=== PATIENT | male | born 1970 | race Caucasian/White ===

== ENCOUNTER → 2016-02-28 | Outpatient (REF) ==
[~2016-02-28] MED LIST: CENTRUM SILVER1 CTB PO; COZAAR100 MG PO; FLAX OIL1000 MG PO; FLEXERIL 1010 MG/TAB PO; HCTZ 25MG TAB25 MG PO; NAPROSYN500 MG PO; NORVASC 10MG10 MG PO; PERCOCET 325 MG1 TA2 PO; PREDNISONE20 MG PO
== END ==
LOC: ZLAB.WCH 10:20
DX: Z01.89 Encounter for other specified special examinations (principal)

== ENCOUNTER 2022-04-02 20:36 | Inpatient (IN) | payer BC ==
[2022-04-02] VITALS (54 sets, daily range): BP systolic 139; BP diastolic 96; PULSE 93–103; TEMP 97.7; O2SAT 92–100
[~2022-04-02] VITALS: Ht 193 cm; Wt 135.4 kg
[~2022-04-02 20:36] MED LIST changes: +CLARITIN 1010 MG/TAB PO; +HYZAAR 25 MG-101 TAB PO; +IMITREX 25MG TA25 MG PO; +MOBIC15 MG PO; +NORMODYNE100 MG PO; +PROTONIX 40MG T40 MG PO
[2022-04-02 20:56] LABS: BASO # 0.1 K/mm3 (0.0-0.2); BASO % 0.3 % (0.0-2.0); EOS # 0.2 K/mm3 (0.0-0.7); EOS % 1.3 % (0.0-4.0); GRAN # 9.4 K/mm3 (1.4-6.5); GRAN % 63.7 % (42.2-75.2); HEMATOCRIT 43.9 % (42.0-52.0); HEMOGLOBIN 15.9 g/dl (13.5-18.0); LYMPH % 27.3 % (20.0-51.0); MEAN CELL VOLUME 88 fl (80.0-100.0); MEAN CORPUSCULAR HEMOGLOBIN 32 pg (27-31); MEAN CORPUSCULAR HGB CONC 36 g/dl (33.0-37.0); MEAN PLATELET VOLUME 10.3 fl (7.4-10.4); PLATELET COUNT 272 K/mm3 (130-400); RED BLOOD COUNT 4.98 M/mm3 (4.20-5.60); REDCELL DISTRIBUTION WIDTH-CV 13.5 % (11.5-14.5)
[2022-04-02 21:02] LABS: PROTHROMBIN TIME 11.4 SECONDS (9.7-12.8)
[2022-04-02 21:15] LABS: ALBUMIN 4.3 gm/dL (3.5-5.0); BILIRUBIN,TOTAL 1.4 mg/dL (0.2-1.2); CREATININE, serum 1.18 mg/dL (0.72-1.25); POTASSIUM 3.4 mmol/L (3.5-4.5); TOTAL PROTEIN 8.1 gm/dL (6.2-8.1)
[2022-04-02 21:31] LABS: TROPONIN-I 0.067 ng/mL (0.00-0.033)
[2022-04-02 22:37] LABS: D-DIMER < 200.00 ng/mLDDu (200-230)
[2022-04-02] MEDS ORDERED: TOPROL XL100 MG PO (22:55)
[2022-04-02] MEDS ORDERED: PRILOTC PO (22:55)
--- NOTE | 2022-04-02 23:52 | NUR ---
PT ARRIVED VIA STRETCHER AT 2247 FROM ER. MOVED TO ICU BED AND CONNECTED TO MONITORING. HEPARIN DRIP AT 1950 UN/HR AND CARDIZEM DRIP AT 10 MG/HR INFUSING TO BILAT A/C 20G PIVS. UPON ARRIVAL, PT STATES FEELING BETTER DENIES PAIN. 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 CTA CHEST ORDERED AND PT TAKEN TO CT VIA WHEELCHAIR WITH RN. CURRENTLY BACK IN ICU BED, PT SPOKE WITH ON ROOM PHONE. VSS, RESP EVEN AND UNLABORED. WILL CONTINUE TO MONITOR.
[2022-04-03] VITALS (1172 sets, daily range): BP systolic 104–143; BP diastolic 68–93; PULSE 58–98; TEMP 97.6–98; O2SAT 88–100
[2022-04-03 00:14] LABS: MAGNESIUM 1.8 mg/dL (1.6-2.6)
--- NOTE | 2022-04-03 08:25 | NUR ---
RECEIVED REPORT FROM NIGHTSHIFT RNGERARDO. CARDIZEM AND HEPARIN DRIPS VERIFIED. PATIENT ASSESSMENT COMPLETED AND MEDS ADMINISTERED PER EMAR.
[2022-04-03 09:54] LABS: HEMATOCRIT 43.9 % (42.0-52.0); HEMOGLOBIN 15.6 g/dl (13.5-18.0); MEAN CELL VOLUME 87 fl (80.0-100.0); MEAN CORPUSCULAR HEMOGLOBIN 31 pg (27-31); MEAN CORPUSCULAR HGB CONC 36 g/dl (33.0-37.0); MEAN PLATELET VOLUME 10.4 fl (7.4-10.4); PLATELET COUNT 221 K/mm3 (130-400); RED BLOOD COUNT 5.03 M/mm3 (4.20-5.60); REDCELL DISTRIBUTION WIDTH-CV 13.7 % (11.5-14.5)
[2022-04-03 10:00] LABS: INR 1.1 (0.8-3.0); PROTHROMBIN TIME 12.3 SECONDS (9.7-12.8)
[2022-04-03 10:09] LABS: CALCIUM 9.9 mg/dL (8.4-10.2); CREATININE, serum 1.01 mg/dL (0.72-1.25); POTASSIUM 3.5 mmol/L (3.5-4.5)
[2022-04-03 10:18] LABS: PARTIAL THROMBOPLASTIN TIME 130.3 SECONDS (26.0-37.0)
--- NOTE | 2022-04-03 10:48 | NUR ---
Initial visit; Patient, his and daughter thanked Sediment Remediation Consultant for coming in to visit Michael and keeping him in her prayers and offering the three of them Ashes for Lent.
--- NOTE | 2022-04-03 11:10 | NUR ---
PT was admitted to ICU on 04-02 from the ER. Tire Trimmer Hand met with PT, his , and daughter at bedside to conduct Care Managment intake and discharge planning. Patient reports that he lives in [place] with his and daughter. PT's PCP is Dr. Freeman in [place], [place] and currently has [employer] as his primary insurance. PT denies the use of MDE and O2 at this time. Patient does not have AD on file and requested AD paperwork. AD paperwork was provided by NIMISHA. PT reports no support concerns if discharged home. SW will monitor for further discharge needs.
--- NOTE | 2022-04-03 12:21 | NUR ---
PT COMPLAINING OF CHEST PAIN 11/19. PT GIVEN ODT NITRO AND MORPHINE PER ORDERS. PT HAS NOW STATED PAIN IS SUBSIDING IN HIS CHEST/LEFT ARM. PT DOES HAVE HEADACHE
--- NOTE | 2022-04-03 12:54 | NUR ---
PATIENT TO MARKETING/SALES PERSON AND OFF UNIT AT 1244. PATIENT ACCOMPANIED BY MARKETING/SALES PERSON STAFF.
--- NOTE | 2022-04-03 13:05 | NUR ---
SEE MERGE FOR ALL MEDICATION ADMINISTRATION TIMES/DOSAGES AND INTRA/POST PROCEDURE SEDATION ASSESSMENTS.
--- NOTE | 2022-04-03 14:52 | NUR ---
PATIENT DID NOT TOLERATE IV POTASSIUM. PHARMACY CONTACTED AND CHANGED TO PO MED. PATIENT NO LONGER NPO STATUS.
--- NOTE | 2022-04-03 14:59 | NUR ---
PATIENT RETURNED TO ICU ROOM 5 @ 1407 FROM WEATHER ANALYST. PATIENT ACCOMPANIED BY WEATHER ANALYST NURSE. PATIENT REPORTS NO CP, SOA, OR PAIN OTHER THAN MILD HEADACHE FROM EARLIER NITRO DOSE. PATIENT REQUESTED IMITREX - MED GIVEN PER EMAR. NO BLEEDING AT SITE. COMPRESSION DEVICE IN PLACE. WILL CONTINUE TO MONITOR.
--- NOTE | 2022-04-03 15:53 | NUR ---
municipal maintenance worker and NIMISHA Deal met with Patient at bedside to follow-up on the AD paperwork provided by this SW. Patient stated that his family has the paperwork and will complete when they return. SW briefed Patient that the directive can be completed outside of the hospital, should he be discharged before it is completed.
--- NOTE | 2022-04-03 16:24 | NUR ---
[employer] History Teacher and NIMISHA Deal met with Patient and his family to complete the AD paperwork. Patient's , James was appointed the primary agent and Linda, his daughteras the secondary. This NIMISHA and Surjit signed as wittnesses.
--- NOTE | 2022-04-03 17:22 | NUR ---
PATIENT CALLED TO NOTIFY NURSE LOOP RECORDER SITE WAS BLEEDING AT 1630. DRESSING AND GOWN WERE SATURATED WITH BLOOD. OLD DRESSING REMOVED, STERI-STRIPS STILL INTACT. AREA CLEANED AND NEW DRESSING APPLIED. AT 1715 PATIENT CALLED AGAIN TO NOTIFY NURSE OF BLEEDING AT THE LOOP RECORDER SITE. PRESSURE DRESSING WAS SATURATED AGAIN WITH BLOOD. ATTEMPTED TO CALL METAL CABINET FINISHER X2 WITH NO SUCCESS. KINGSLEY HARRIS AND ICU CLAY PIGEON LOADER KINGSLEY TUCKER NOTIFIED AT THIS TIME. PRESSURE WAS HELD TO THE SITE FOR 7 MINUTES. AREA WAS CLEANSED, NEW PRESSURE DRESSING WAS APPLIED BY KINGSLEY TUCKER. WILL CONTINUE TO MONITOR.
--- NOTE | 2022-04-03 22:59 | NUR ---
AIR FROM TR BAND FULLY REMOVED BY PREVIOUS RN. TR BAND REMOVED AND BANDAID PLACED OVER SITE. NO BLEEDING OBSERVED
[2022-04-04] VITALS (714 sets, daily range): BP systolic 123–142; BP diastolic 80–97; PULSE 58–62; TEMP 97.7–98.2; O2SAT 77–99
[2022-04-04 06:38] LABS: BASO % 0.3 % (0.0-2.0); EOS # 0.2 K/mm3 (0.0-0.7); EOS % 2.3 % (0.0-4.0); HEMATOCRIT 42.8 % (42.0-52.0); HEMOGLOBIN 14.8 g/dl (13.5-18.0); LYMPH % 26.1 % (20.0-51.0); MEAN CELL VOLUME 89 fl (80.0-100.0); MEAN CORPUSCULAR HEMOGLOBIN 31 pg (27-31); MEAN CORPUSCULAR HGB CONC 35 g/dl (33.0-37.0); MEAN PLATELET VOLUME 10.3 fl (7.4-10.4); MONO # 0.6 K/mm3 (0.1-0.6); PLATELET COUNT 208 K/mm3 (130-400); RED BLOOD COUNT 4.79 M/mm3 (4.20-5.60); REDCELL DISTRIBUTION WIDTH-CV 13.4 % (11.5-14.5)
[2022-04-04 06:57] LABS: CALCIUM 9.2 mg/dL (8.4-10.2); POTASSIUM 3.9 mmol/L (3.5-4.5)
--- NOTE | 2022-04-04 07:20 | NUR ---
[facility]. LABS, ORDERS, AND MEDICATIONS REVIEWED.
--- NOTE | 2022-04-04 09:47 | NUR ---
HEAD TO TOE ASSESSMENT COMPLETED. MEDICATIONS ADMINISTERED PER EMAR. PATIENT HAS NO COMPAINTS OF PAIN OR CONCERNS AT THIS TIME. CALL LIGHT WITHIN REACH. WILL CONTINUE TO MONITOR.
[2022-04-04] MEDS ORDERED: CLEOCIN HC150 MG/CAP PO (11:39)
[2022-04-04] MEDS ORDERED: ASPIRIN 81M81 MG/TA2 PO (11:39)
--- NOTE | 2022-04-04 12:30 | NUR ---
PATIENT AND FAMILY PROVIDED WITH EDUCATION HANDOUTS, MED LIST, AND DISCHARGE PACKET. PATIENT STATED UNDERSTANDING.
== END 2022-04-04 12:41 | disposition home or self-care (01) | DRG 260 ==
LOC: COL.ER 20:36 → ICU 21:27
PROVIDERS: Emergency Medicine; Student in an Organized Health Care Education/Training Program; ADMIT Internal Medicine
PROC: 0JH632Z Insertion of Monitoring Device into Chest Subcutaneous Tissue and Fascia, Percutaneous Approach (ICD-10-PCS; principal; 2022-04-03)
PROC: 4A023N7 Measurement of Cardiac Sampling and Pressure, Left Heart, Percutaneous Approach (ICD-10-PCS; 2022-04-03)
PROC: B2111ZZ Fluoroscopy of Multiple Coronary Arteries using Low Osmolar Contrast (ICD-10-PCS; 2022-04-03)
DX: I48.91 Unspecified atrial fibrillation (principal); I21.A1 Myocardial infarction type 2; K21.9 Gastro-esophageal reflux disease without esophagitis; G43.909 Migraine, unspecified, not intractable, without status migrainosus; I10 Essential (primary) hypertension; D72.829 Elevated white blood cell count, unspecified; E87.6 Hypokalemia; I47.1 Supraventricular tachycardia; M19.90 Unspecified osteoarthritis, unspecified site; I25.10 Atherosclerotic heart disease of native coronary artery without angina pectoris; Z88.0 Allergy status to penicillin; Z98.52 Vasectomy status; Z23 Encounter for immunization
CPT/HCPCS: C1764; J1644; J2250; J2270; J3010; J3480; Q9967